=== PATIENT | male | born 1980 | race Caucasian/White ===

== ENCOUNTER 2016-11-22 10:00 | Emergency (ER) | payer SELFPAY ==
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
[2016-11-22 12:33] LABS: BASOPHILS % 1.1 (0.0-1.5); EOSINOPHILS % 1.9 % (0.0-6.8); MEAN CORPUSCULAR HEMOGLOBIN 30.5 pg (28.0-34.0); MONOCYTES % 5.9 % (0.0-11.0); NEUTROPHILS # 5.8 # k/uL (1.4-7.7)
[2016-11-22 12:37] LABS: AMPHETAMINE NEGATIVE ng/mL (<1000); BARBITURATES NEGATIVE ng/mL (<300); CANNABINOIDS NON NEGATIVE ng/mL (< 50); COCAINE NEGATIVE ng/mL (<150); METHAMPHETAMINE NEGATIVE ng/mL (<1000); METHYLENEDIOXYMETHAMPHETAMINE NEGATIVE ng/mL (<500); MORPHINE NEGATIVE ng/mL (<300)
[2016-11-22 12:54] LABS: eGFR (African) > 60; eGFR (Non-African) > 60
[2016-11-22 12:54] LABS: APPEARANCE,URINE Clear (CLEAR); COLOR,URINE Yellow (YELLOW); OCCULT BLOOD,URINE Negative (NEGATIVE); UROBILINOGEN URINE 0.2 Eu (0.2-1.0)
[2016-11-22 17:56] VITALS: BP 134/85
== END 2016-11-22 17:48 ==
LOC: ED 10:00
DX: F32.9 Major depressive disorder, single episode, unspecified (principal); R45.851 Suicidal ideations
CPT/HCPCS: 80053; 80320; 80377; 81002; 85025; 99284; G0480; G0481

== ENCOUNTER 2017-05-14 13:20 | Emergency (ER) | payer SELFPAY ==
--- NOTE | 2017-05-14 13:35 | ED Physician Documentation ---
Fall - HISTORIAN Historian: patient, spouse - HPI Stated Complaint: fall Chief Complaint: Fall Onset: just prior to arrival Where: other (Ice Skating Rink) Context: slipped, lost balance r: moderate Associated Symptoms:: brief (seconds) (30 seconds per ) Location of Pain/Injury: head Injury to Right Extremity: none Injury to Left Extremity: none Further Comments: yes (Per he was skating and he did fall and hit his head with a 30 second or less LOC. states he woke on his own. He did not have any N/V. He does not remember approx 1 hour in that time. He does have no issues with senior care recall. No other deficits.) - ROS CONST: no problems NEURO: denies: anxiety MS/SKIN/LYMPH: denies: weakness, numbness, neck pain EYES/ENT: denies: problems with vision CVS/RESP: denies: chest pain, shortness of breath, palpitations GI/: denies: problems urinating, nausea, vomiting - PAST HX Past History: none Immunizations: UTD Allergies/Adverse Reactions: Allergies Allergy/AdvReac Type Severity Reaction Status Date / Time No Known Allergies Allergy Verified 05/14/17 13:41 Home Medications: Ambulatory Orders Medication Instructions Recorded Haloperidol [Haldol] 10 mg PO HS 05/14/17 Hydroxyzine HCl [Hydroxyzine HCl] 50 mg PO DAILY PRN 05/14/17 Pramipexole Di-HCl [Mirapex] 1 mg PO TID 05/14/17 - SOCIAL HX Smoking History: cigarettes Alcohol Use: rarely Drug Use: marijuana - FAMILY HX Family History: none - VITAL SIGNS Vital Signs: Vital Signs Temp Pulse Resp BP Pulse Ox 134/85 11/22/16 17:50 - REVIEWED ASSESSMENTS Nursing Assessment Reviewed: Yes Vitals Reviewed: Yes ED Results Lab/Radiology - Radiology Radiology Impressions: HISTORY: 36 year old male fell, dizziness, confusion COMPARISON: None available TECHNIQUE: Noncontrast axial CT images of the head were performed. FINDINGS: No intracranial hemorrhage, mass, midline shift, hydrocephalus, or evidence of acute large vessel infarct. The mastoid air cells and middle ear spaces are clear. There is mild mucosal thickening in the right maxillary sinus. There is a right ingrid bullosa. No cranial fracture or scalp edema. IMPRESSION: 1. No acute intracranial process. 2. Mild right maxillary sinus disease. Electronically signed on May 14, 2017 2:11:44 PM TAX ACCOUNTANT by: Luis Daniel Amy Fall Physical Exam - Physical Exam General Appearance: no acute distress, alert Head: non-tender, trauma (small raised area on scalp 2 cm red raised with mild abrasion ) Neck: non-tender, painless ROM Eye: JOSHUA. No: visual field deficit ENT: nml external inspection Resp/CVS: chest non-tender, breath sounds nml, no resp. distress, heart sounds nml Abdomen: soft, normal bowel sounds, no distension, non-tender Neuro: CN's nml as tested, sensation nml, motor nml, mood/affect nml. No: oriented x3 (He is not sure of date ) Skin: color nml, no rash Back: normal inspection Extremities: atraumatic Joint: joints nml, nml ROM, Nml gait/weight bearing - [place] Coma Score Eyes Open: Spontaneous Speech: Confused (he is not sure of date) Motor: Obeys Commands Discharge Clincal Impression: Head injury Qualifiers: Encounter type: initial encounter Qualified Code(s): S09.90XA - Unspecified injury of head, initial encounter Referrals: Kinsey Connor MD [Primary Care Provider] - 2 Days Comments: Tylenol or Ibuprofen for headache Ice to affected area Monitor for any N/V or change in mental Status Follow up with PCP in 1-2 days before returning to work or driving Condition: Stable Disposition: 01 HOME, SELF-CARE Decision to Admit: NO Date of Decison to Admit: 05/14/17 Decision Time: 14:16
[2017-05-14 13:39] VITALS: BP 159/94
--- NOTE | 2017-05-14 15:13 | Diagnostic Imaging Report ---
[facility] [address] [facility] [address] Report Submission Date: May 14, 2017 2:11:44 PM LOG HAUL OPERATOR Patient Study Name: TRENA HUNT Date: May 14, 2017 1:39:48 PM LOG HAUL OPERATOR Modality Type: CT\SR Gender: M Description: CT BRAIN W/O CONTRAST : 78 Institution: [facility] Physician: ANDERS LOVE Electronically signed on May 14, 2017 2:11:44 PM LOG HAUL OPERATOR by: Luis Daniel LANG
== END 2017-05-14 14:22 | disposition home or self-care (01) ==
LOC: ED 13:20
DX: S09.90XA Unspecified injury of head, initial encounter (principal); W18.39XA Other fall on same level, initial encounter; Y93.21 Activity, ice skating; Y92.9 Unspecified place or not applicable
CPT/HCPCS: 70450; 99283